=== PATIENT | female | born 1955 | race Caucasian/White ===

== ENCOUNTER → 2016-04-05 | Outpatient (CLI) | payer OTHER, SELFPAY ==
[~2016-04-05] MED LIST: ASPIRIN81 MG PO; BACTROBAN NASAL1 GM NASBOTH; BREO ELLIPTA 11 EACH INH; CELEXA40 MG PO; COZAAR100 MG PO; FLEXERIL10 MG PO; FLONASE16 GM NASBOTH; FORMOTEROL INH; HYDROCHLOROTHIA25 MG PO; LASIX20 MG PO; MOBIC15 M1 PO; MOMETASONE INH; MS CONTIN15 MG PO; OXYCODONE HCL10 MG PO; PERCOCET 325-51 TAB PO; PRILOSEC40 MG PO; PROVENTIL2.5 MG/3 M INH; SENNA-S TABLET1 EACH PO; SINGULAIR10 MG PO; TYLENOL EXTRA500 MG PO
== END | disposition short-term general hospital (02) ==
LOC: CLORTH 10:43
DX: S82.024D Nondisplaced longitudinal fracture of right patella, subsequent encounter for closed fracture with routine healing (principal); S92.514D Nondisplaced fracture of proximal phalanx of right lesser toe(s), subsequent encounter for fracture with routine healing; M17.0 Bilateral primary osteoarthritis of knee

== ENCOUNTER → 2016-04-19 | Outpatient (CLI) | payer OTHER, SELFPAY | END | disposition short-term general hospital (02) | LOC: CLORTH 13:12 | DX: S82.024D Nondisplaced longitudinal fracture of right patella, subsequent encounter for closed fracture with routine healing (principal); M17.0 Bilateral primary osteoarthritis of knee ==

== ENCOUNTER → 2016-04-26 | Outpatient (CLI) | payer OTHER, SELFPAY | END | disposition short-term general hospital (02) | LOC: CLORTH 10:04 | DX: M17.0 Bilateral primary osteoarthritis of knee (principal); M25.562 Pain in left knee; M25.561 Pain in right knee; G89.29 Other chronic pain ==

== ENCOUNTER → 2016-05-10 | Outpatient (CLI) | payer OTHER, SELFPAY | END | disposition short-term general hospital (02) | LOC: CLORTH 07:33 | DX: M25.562 Pain in left knee (principal) ==

== ENCOUNTER 2016-05-24 06:31 | Inpatient (IN) | payer OTHER, SELFPAY ==
[~2016-05-24] VITALS: Ht 151.1 cm; Wt 93.9 kg
[~2016-05-24 06:31] MED LIST changes: -ASPIRIN81 MG PO; -BACTROBAN NASAL1 GM NASBOTH; -FORMOTEROL INH; -MOMETASONE INH; -OXYCODONE HCL10 MG PO; -SENNA-S TABLET1 EACH PO; -TYLENOL EXTRA500 MG PO
[2016-05-24] MEDS ORDERED: BACTROBAN NASAL1 GM NASBOTH (12:34)
[2016-05-27] MEDS ORDERED: ASPIRIN81 MG PO (09:12)
[2016-05-27] MEDS ORDERED: OXYCODONE HCL10 MG PO (09:16)
[2016-05-27] MEDS ORDERED: MOMETASONE INH (09:24)
[2016-05-27] MEDS ORDERED: FORMOTEROL INH (09:24)
[2016-05-27] MEDS ORDERED: SENNA-S TABLET1 EACH PO (09:28)
[2016-05-27] MEDS ORDERED: TYLENOL EXTRA500 MG PO (09:31)
== END 2016-05-27 10:45 | disposition short-term general hospital (02) | DRG 470 ==
LOC: IP 06:31 → SURG 06:31 → CLORTH 14:26 → EDSTATUS 14:52 → CLORTH 14:52 → SURG 14:58 → CLORTH 15:15 → IP 05-27 10:45
PROVIDERS: ADMIT Family Medicine
PROC: 0SRD0J9 Replacement of Left Knee Joint with Synthetic Substitute, Cemented, Open Approach (ICD-10-PCS; principal; 2016-05-24)
DX: M17.12 Unilateral primary osteoarthritis, left knee (principal); Z68.41 Body mass index [BMI] 40.0-44.9, adult; D62 Acute posthemorrhagic anemia; I10 Essential (primary) hypertension; E78.5 Hyperlipidemia, unspecified; F32.9 Major depressive disorder, single episode, unspecified; K21.9 Gastro-esophageal reflux disease without esophagitis; E66.9 Obesity, unspecified
CPT/HCPCS: A9150; C1776; J0171; J0690; J1100; J1885; J2250; J2270; J2795; J3010; J3490; J8499

== ENCOUNTER → 2016-06-07 | Outpatient (CLI) | payer OTHER, SELFPAY ==
[~2016-06-07] MED LIST changes: +ASPIRIN81 MG PO; +BACTROBAN NASAL1 GM NASBOTH; +FORMOTEROL INH; +MOMETASONE INH; +OXYCODONE HCL10 MG PO; +SENNA-S TABLET1 EACH PO; +TYLENOL EXTRA500 MG PO
== END | disposition short-term general hospital (02) ==
LOC: CLORTH 10:45
DX: Z47.1 Aftercare following joint replacement surgery (principal); Z96.652 Presence of left artificial knee joint

== ENCOUNTER → 2016-07-05 | Outpatient (CLI) | payer OTHER | END | disposition short-term general hospital (02) | LOC: CLORTH 10:49 | DX: Z47.1 Aftercare following joint replacement surgery (principal); Z96.652 Presence of left artificial knee joint ==